=== PATIENT | female | born 1960 | race Caucasian/White ===

== ENCOUNTER 2025-07-06 12:37 | Inpatient (IN) | payer MEDICARE ==
[~2025-07-06] VITALS: Ht 165.1 cm; Wt 88.5 kg
[2025-07-06 13:25] VITALS: TEMP 98.1
[2025-07-06] MEDS ORDERED: SODIUM CHLORIDE FLUSH 10 ML SYR IV PRN (13:45)
[2025-07-06 14:58] LABS: BASOPHILS % 0.3 % (0.0-1.0); EOSINOPHILS % 2.9 % (0.0-6.0); LYMPHOCYTES % 17.4 % (18.0-39.1); MONOCYTES % 6.7 % (4.4-11.3); NEUTROPHILS % 72.5 % (38.7-80.0); RED CELL DISTRIBUTION WIDTH 12.8 % (11.7-14.4)
[2025-07-06 15:15] LABS: INR 1.06
[2025-07-06 15:20] LABS: EST GLOMERULAR FILTRATION RATE 97.0 ML/MIN (>=60)
[2025-07-06 16:07] LABS: LEUKOCYTE ESTERASE ,URINE NEGATIVE (NEGATIVE); PROTEIN,URINE DIPSTICK NEGATIVE (NEGATIVE); URINE UROBILINOGEN 0.2 mg/dL (0.2 - 1)
[2025-07-06 16:08] LABS: WBC,URINE (MAN) 0-5 /HPF (0-5)
[2025-07-06 16:09] LABS: EPITHELIAL CELLS,URINE FEW /LPF
[2025-07-06] MEDS ORDERED: SODIUM CHLORIDE FLUSH 10 ML SYR INJ PRN (16:30)
[2025-07-06] MEDS: LABETALOL HCL 5 MG/ML 20ML VIAL IV STA ×2 (17:16→17:45)
[2025-07-06] MEDS: ASPIRIN 81 MG CHEW TAB PO ONE (17:19)
[2025-07-06] MEDS: ACETAMINOPHEN 325 MG TAB PO ONE (17:46)
[2025-07-06] MEDS: ONDANSETRON HCL INJ 2MG/ML 2ML 2 MG/ML VIAL IV PRN (18:20)
[2025-07-06 18:32] LABS: CHOL/HDL RATIO 3.1 (3.0-3.6); LDL CHOLESTEROL 133.0 MG/DL (60-130)
[2025-07-06] MEDS: VALPROATE SOD INJ 500 MG in SODIUM CHLORIDE 0.9% 100 ML INJ STA (19:40)
[2025-07-06] MEDS ORDERED: SODIUM CHLORIDE 0.9% 100 ML ONE (20:23)
[2025-07-06] MEDS ORDERED: IOPAMIDOL 370 MG/ML 100 ML INFUS..BTL INJ ONE (20:23)
[2025-07-06] MEDS ORDERED: FAMOTIDINE 20 MG TAB PO PRN (20:30)
[2025-07-06] MEDS: ATORVASTATIN 40 MG TAB PO SCH (21:00)
[2025-07-06 23:55] VITALS: PULSE 94; RESP 18
[2025-07-07] VITALS (10 sets, daily range): BP systolic 112–131; BP diastolic 43–68; PULSE 67–111; RESP 17–24; TEMP 98.4; O2SAT 86–97
[2025-07-07] MEDS: CLOPIDOGREL BISULFATE 75 MG TAB PO ONE (00:30)
[2025-07-07] MEDS: ACETAMINOPHEN/CODEINE 300MG - 30MG TAB PO PRN (00:30)
[2025-07-07] MEDS: MELATONIN 5 MG TABLET PO PRN (00:30)
[2025-07-07] MEDS: ASPIRIN 81 MG ENTERIC COATED PO STA (00:30)
[2025-07-07 06:50] LABS: EST GLOMERULAR FILTRATION RATE 59.0 ML/MIN (>=60)
[2025-07-07 06:51] LABS: BASOPHILS % 0.5 % (0.0-1.0); EOSINOPHILS % 1.1 % (0.0-6.0); LYMPHOCYTES % 27.4 % (18.0-39.1); MONOCYTES % 10.2 % (4.4-11.3); NEUTROPHILS % 60.6 % (38.7-80.0); RED CELL DISTRIBUTION WIDTH 13.3 % (11.7-14.4)
[2025-07-07] MEDS: CLOPIDOGREL BISULFATE 75 MG TAB PO SCH (08:34)
[2025-07-07] MEDS: ASPIRIN 81 MG ENTERIC COATED PO SCH (08:34)
[2025-07-07] MEDS: ACETAMINOPHEN 325 MG TAB PO PRN (09:51)
== END 2025-07-07 19:00 | disposition short-term general hospital (02) | DRG 92 ==
LOC: ER 13:43 → ERHOLD 16:21 → ICU 23:57 → OBSVTOIN 07-07 07:55
PROVIDERS: ADMIT Family Medicine Adult Medicine; ATTEND Family Medicine Adult Medicine
DX: I67.1 Cerebral aneurysm, nonruptured (principal); G45.9 Transient cerebral ischemic attack, unspecified; R47.01 Aphasia; I67.4 Hypertensive encephalopathy; I10 Essential (primary) hypertension; I99.8 Other disorder of circulatory system; Z72.0 Tobacco use; Z88.8 Allergy status to other drugs, medicaments and biological substances
CPT/HCPCS: 36415; 70450; 70496; 70498; 71045; 80053; 80061; 81001; 82607; 83036; 83880; 84484; 85025; 85610; 85730; 93005; 93306; 94760; 99284; G0378; J2405; J7050; Q9967